=== PATIENT | male | born 1955 | race Caucasian/White ===

== ENCOUNTER 2017-04-15 10:53 | Observation (INO) | payer BC ==
[2017-04-15] VITALS (10 sets, daily range): BP systolic 98–128; BP diastolic 61–79; PULSE 81–98; RESP 16–22; TEMP 97.8–99.3; O2SAT 98–100
[~2017-04-15] VITALS: Ht 182.9 cm; Wt 70.0 kg
[~2017-04-15 10:53] MED LIST: ATEN1TAB73 PO; LEVO.15 PO; LOPI600T PO; PRIN20TA2 PO
[2017-04-15] MEDS ORDERED: LEVO.15 PO (11:15)
[2017-04-15] MEDS ORDERED: DIOV160T3 PO (11:15)
--- NOTE | 2017-04-15 11:26 | PD ---
HPI Chief Complaint: General Weakness Time Seen by Provider: 11:19 Travel History International Travel<30 days: No Contact w/Intl Traveler<30days: No Traveled to known affect area: No History of Present Illness HPI Patient comes in complaining of generalized weakness over the past week. Patient states started after he stood up at work felt lightheaded and fell. Patient denies any loss of consciousness but hit his head on the floor causing a small abrasion to his right temporal lobe. Patient reports since then he's been having a headache primarily in the frontal lobe and behind his eyes. Patient states over the past couple of days he's been feeling more weak and had to be sent home from work. Patient states he was having 3 vodka drinks a day but has been cutting back to one. Patient states he has not had his thyroid checked in over a year. He states he takes his Synthroid and valsartan as prescribed. Patient states approximately a week ago he had 2 episodes of bright red blood per rectum since resolved. Denies any melena or other blood noted in stool. Patient reports he did have diarrhea last night that he believes was from eating peaches as it was orange and he ate a large amount of peaches. Denies any chest pain, shortness of breath, neck pain, numbness or tingling anywhere, abdominal pain, vomiting, nausea, fevers, or change in bladder. Patient is uncertain of his last tetanus shot. Patient states he was taking Aleve for his headache that was helping but he quit taking after having the episode of bright red blood in his stool a week ago. Patient has a history of hypertension, hypothyroidism, and nonfunctioning right kidney. 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 PFSH Past Medical History Cardiovascular Problems: Yes Diminished Hearing: Yes Hypertension: Yes Musculoskeletal: No Neurologic: No Psychiatric: No Thyroid Disease: Yes (HYPOTHYROID) Tetanus Vaccination: < 5 Years Influenza Vaccination: No Past Surgical History Tonsillectomy: Yes Other Surgery: Yes (TONSILLECTOMY) Social History Alcohol Use: Yes (daily) Tobacco Use: No Substance Use: No (pt denies ) Allergies-Medications (Allergen,Severity, Reaction): Coded Allergies: No Known Allergies (Unverified , 04/15/17) Reported Meds & Prescriptions Reported Meds & Active Scripts Active Reported Diovan Hct (Valsartan-Hydrochlorothiazide) 160-12.5 Mg Tab 1 Tab PO DAILY Synthroid (Levothyroxine Sodium) 150 Mcg Tab 150 Mcg PO DAILY Review of Systems Except as stated in HPI: all other systems reviewed are Neg Physical Exam Narrative GENERAL: Well-developed, well nourished, in no acute distress, and non-ill appearing. SKIN: Focused skin assessment warm and dry. Small superficial abrasion noted right temporal lobe. It is nontender, afebrile, and without crepitus. There is no signs of infection. HEAD: Atraumatic. Normocephalic. EYES: Pupils equal and round. EOMI. No scleral icterus. No injection or drainage. ENT: No nasal bleeding or discharge. Mucous membranes pink and moist. NECK: Trachea midline. No JVD. Supple. No nuclear rigidity. CARDIOVASCULAR: Regular rate and rhythm. 2/6 murmur appreciated. RESPIRATORY: No accessory muscle use. No respiratory distress. Clear to auscultation. Breath sounds equal bilaterally. GASTROINTESTINAL: Abdomen soft, non-tender, nondistended, and no guarding. Hepatic and splenic margins not palpable. Normal bowel sounds 4. No pulsatile mass. MUSCULOSKELETAL: No obvious deformities. No clubbing. No cyanosis. No edema. Full range of motion. NEUROLOGICAL: Awake and alert. No obvious cranial nerve deficits. Motor grossly within normal limits. Normal speech. PSYCHIATRIC: Appropriate mood and affect; insight and judgment normal. Data Data Last Documented VS Vital Signs Date Time Temp Pulse Resp B/P Pulse Ox O2 Delivery O2 Flow Rate FiO2 04/15/17 12:28 97.8 81 16 114/73 100 Room Air Orders Electrocardiogram (04/15/17 11:16) Complete Blood Count With Diff (04/15/17 11:16) Comprehensive Metabolic Panel (04/15/17 11:16) Magnesium (Mg) (04/15/17 11:16) Ckmb (Isoenzyme) Profile (04/15/17 11:16) Troponin I (04/15/17 11:16) Act Partial Throm Time (Ptt) (04/15/17 11:16) Prothrombin Time / Inr (Pt) (04/15/17 11:16) Urinalysis - C+S If Indicated (04/15/17 11:16) Chest, Single Ap (04/15/17 11:16) Ct Brain W/O Iv Contrast(Rout) (04/15/17 11:16) Ecg Monitoring (04/15/17 11:16) Iv Access Insert/Monitor (04/15/17 11:16) Oximetry (04/15/17 11:16) Sodium Chloride 0.9% Flush (Ns Flush) (04/15/17 11:30) Orthostatic Vital Signs (04/15/17 11:16) Thyroid Stimulating Hormone (04/15/17 11:16) Tetanus/Diphtheria Tox Adult (Tetanus/Di (04/15/17 11:30) Sodium Chlor 0.9% 1000 Ml Inj (Ns 1000 M (04/15/17 12:15) Westergren Sedimentation Rate (04/15/17 13:17) Vitamin B12 (04/15/17 13:17) Uric Acid (04/15/17 13:17) Thyroid Stimulating Hormone (04/15/17 13:17) Phosphorus (Po4) (04/15/17 13:17) Magnesium (Mg) (04/15/17 13:17) Ammonia (04/15/17 13:17) Free T3 (04/15/17 13:17) Free Thyroxine (T4) (04/15/17 13:17) Free/Total Testosterone Profil (04/15/17 13:17) Psa Free/Total (04/15/17 13:17) Admit Order (Ed Use Only) (04/15/17 13:18) Levothyroxine (Synthroid) (04/16/17 09:00) Labs Laboratory Tests Test 04/15/17 11:30 White Blood Count 3.8 TH/MM3 Red Blood Count 3.28 MIL/MM3 Hemoglobin 10.9 GM/DL Hematocrit 32.8 % Mean Corpuscular Volume 99.9 FL Mean Corpuscular Hemoglobin 33.2 PG Mean Corpuscular Hemoglobin 33.3 % Concent Red Cell Distribution Width 14.4 % Platelet Count 208 TH/MM3 Mean Platelet Volume 7.6 FL Neutrophils (%) (Auto) 67.4 % Lymphocytes (%) (Auto) 21.2 % Monocytes (%) (Auto) 7.5 % Eosinophils (%) (Auto) 2.5 % Basophils (%) (Auto) 1.4 % Neutrophils # (Auto) 2.6 TH/MM3 Lymphocytes # (Auto) 0.8 TH/MM3 Monocytes # (Auto) 0.3 TH/MM3 Eosinophils # (Auto) 0.1 TH/MM3 Basophils # (Auto) 0.1 TH/MM3 CBC Comment DIFF FINAL Differential Comment Prothrombin Time 10.8 SEC Prothromb Time International 1.0 RATIO Ratio Activated Partial 25.4 SEC Thromboplast Time Sodium Level 130 MEQ/L Potassium Level 4.3 MEQ/L Chloride Level 92 MEQ/L Carbon Dioxide Level 23.7 MEQ/L Anion Gap 14 MEQ/L Blood Urea Nitrogen 61 MG/DL Creatinine 2.99 MG/DL Estimat Glomerular Filtration 22 ML/MIN Rate Random Glucose 105 MG/DL Calcium Level 9.3 MG/DL Magnesium Level 1.8 MG/DL Total Bilirubin 0.8 MG/DL Aspartate Amino Transf 283 U/L (AST/SGOT) Alanine Aminotransferase 141 U/L (ALT/SGPT) Alkaline Phosphatase 142 U/L Total Creatine Kinase 59 U/L Troponin I LESS THAN 0.02 NG/ML Total Protein 7.9 GM/DL Albumin 4.0 GM/DL Thyroid Stimulating Hormone 26.900 uIU/ML [address] [place] [address] Medical Decision Making Medical Screen Exam Complete: Yes Emergency Medical Condition: Yes Interpretation(s) EKG reviewed by Dr. Gonzalez shows sinus rhythm with a ventricular rate of 79. No STEMI. Chest x-ray read by the radiologist shows: No acute disease. CT head read by the radiologist shows: No acute intracranial injury. Differential Diagnosis Anemia, orthostatic hypotension, dehydration, acute coronary syndrome, renal insufficiency, pneumonia, postconcussive headache, closed head injury, intracranial hemorrhage, uncontrolled thyroid, other Narrative Course Patient was seen and examined. IV was established. Patient was placed on a monitor technician. Initial laboratory and radiological studies were ordered. Orthostatics were ordered. Patient was hydrated with IV fluid. Labs and radiological studies were reviewed. Discussed patient with Dr. Gonzalez, who is in agreement with plan of care and disposition. Discussed all findings and plan care was patient, who was agreeable for admission. All questions were answered. Discussed patient with hospitalist, who is agreeable to admit the patient. Patient remained stable throughout ED course. Physician Communication Physician Communication [id number] Camilo, who is agreeable to the patient. Diagnosis Primary Impression: Generalized weakness Additional Impressions: Acute on chronic renal insufficiency Hypothyroidism Qualified Code: E03.9 - Hypothyroidism, unspecified type Admitting Information Admitting Physician Requests: Observation Condition: Stable Peter Rendon Apr 15, 2017 11:26
[2017-04-15] MEDS ORDERED: SODIUM CHLORIDE 0.9% FLUSH 10 ML FLUSH IVF PRN (11:30)
[2017-04-15] MEDS ORDERED: TETANUS/DIPHTHERIA TOXOID ADULT 0.5 ML VIAL IM ONE (11:30)
[2017-04-15 11:44] LABS: AUTOMATED NEUTROPHIL # 2.6 TH/MM3 (1.8-7.7); BASOPHIL # 0.1 TH/MM3 (0-0.2); BASOPHIL % 1.4 % (0.0-2.0); EOSINOPHIL # 0.1 TH/MM3 (0-0.4); EOSINOPHIL % 2.5 % (0.0-4.0); HEMATOCRIT 32.8 % (39.0-51.0); HEMO FLAGS DIFF FINAL; LYMPH % 21.2 % (9.0-44.0); LYMPHOCYTE # 0.8 TH/MM3 (1.0-4.8); MEAN CELL VOLUME 99.9 FL (80.0-100.0); MEAN CORPUSCULAR HEMOGLOBIN 33.2 PG (27.0-34.0); MEAN CORPUSCULAR HGB CONC 33.3 % (32.0-36.0); MONO % 7.5 % (0.0-8.0); NEUT % 67.4 % (16.0-70.0); PLATELET COUNT 208 TH/MM3 (150-450); RED BLOOD COUNT 3.28 MIL/MM3 (4.50-5.90); RED CELL DISTRIBUTION WIDTH 14.4 % (11.6-17.2); WHITE BLOOD COUNT 3.8 TH/MM3 (4.0-11.0)
[2017-04-15 11:49] LABS: APTT (PATIENT) 25.4 SEC (24.3-30.1); PROTHROMBIN TIME - PATIENT 10.8 SEC (9.8-11.6)
[2017-04-15 11:58] LABS: ALT (GPT) 141 U/L (12-78); ANION GAP 14 MEQ/L (5-15); AST (GOT) 283 U/L (15-37); BICARBONATE 23.7 MEQ/L (21.0-32.0); BLOOD UREA NITROGEN 61 MG/DL (7-18); CHLORIDE 92 MEQ/L (98-107); GLOMERULAR FILTRATION RATE 22 ML/MIN (>89); MAGNESIUM 1.8 MG/DL (1.5-2.5); POTASSIUM 4.3 MEQ/L (3.5-5.1); SODIUM (NA) 130 MEQ/L (136-145)
[2017-04-15 12:07] LABS: ALKALINE PHOSPHATASE 142 U/L (45-117); TOTAL BILIRUBIN ADULT 0.8 MG/DL (0.2-1.0)
[2017-04-15] MEDS ORDERED: SODIUM CHLOR 0.9% 1000 ML INJ 1,000 ML IV ONE (12:15)
[2017-04-15 12:17] LABS: CREATINE KINASE 59 U/L (39-308)
--- NOTE | 2017-04-15 12:30 | RADRPT ---
EXAM DATE/TIME: 04/15/2017 11:28 [facility] COMPARISON: No previous studies available for comparison. INDICATIONS : Patient fell and hit his head last Thursday. States he's been dizzy since. He fell on Thursday also. MEDICAL HISTORY : None. SURGICAL HISTORY : None. ENCOUNTER: Initial ACUITY: 1 day PAIN SCORE: 0/10 LOCATION: Bilateral chest FINDINGS: A single view of the chest demonstrates the lungs to be symmetrically aerated without evidence of mas s, infiltrate or effusion. The cardiomediastinal contours are unremarkable. Osseous structures are intact. CONCLUSION: No acute disease. Hayes Gross MD on April 15, 2017 at 12:28 Board Certified Radiologist. This report was verified electronically.
--- NOTE | 2017-04-15 12:46 | RADRPT ---
EXAM DATE/TIME: 04/15/2017 12:19 [facility] COMPARISON: No previous studies available for comparison. INDICATIONS : Fell hit head one week ago abrasion right frontal area,dizzy. RADIATION DOSE: 35.13 CTDIvol (mGy) MEDICAL HISTORY : Hypothyroidism. SURGICAL HISTORY : None. ENCOUNTER: Initial ACUITY: 1 day PAIN SCALE: 5/10 LOCATION: cranial TECHNIQUE: Multiple contiguous axial images were obtained of the head. Using automated exposure control and adj ustment of the mA and/or kV according to patient size, radiation dose was kept as low as reasonably a chievable to obtain optimal diagnostic quality images. DICOM format image data is available electro nically for review and comparison. FINDINGS: There is mild symmetric cortical atrophy. No evidence of intracranial mass or hemorrhage. The leg to suggest acute infarction. The ventricles are symmetric and normal. The extracranial structures are be nign and intact. CONCLUSION: No acute intracranial injury Lucas Cantrell MD on April 15, 2017 at 12:42 Board Certified Radiologist. This report was verified electronically.
[2017-04-15] MEDS ORDERED: SODIUM CHLORIDE 0.9% FLUSH 10 ML FLUSH IV FLUSH PRN (13:30)
[2017-04-15] MEDS ORDERED: MAGNESIUM HYDROXIDE SUSP 30 ML CUP PO PRN (13:30)
[2017-04-15] MEDS ORDERED: ONDANSETRON HCL 4 MG/2 ML VIAL IVP PRN (13:30)
[2017-04-15] MEDS ORDERED: BISACODYL 10 MG SUPP RECTAL PRN (13:30)
[2017-04-15] MEDS ORDERED: NALOXONE HCL 0.4 MG/ML AMP IV PRN (13:30)
[2017-04-15] MEDS ORDERED: LACTULOSE SYRUP 20 GM/30 ML CUP PO PRN (13:30)
[2017-04-15] MEDS ORDERED: SENNOSIDES 8.6 MG TAB PO PRN (13:30)
[2017-04-15] MEDS: HEPARIN SODIUM - SQ 10,000 UNITS/ML VIAL SQ SCH (14:01)
[2017-04-15] MEDS: SODIUM CHLOR 0.9% 1000 ML INJ 1,000 ML IV SCH (14:01)
[2017-04-15 14:02] LABS: BLOOD, URINE TRACE (NEG); COMMENT (UR) CULT NOT INDICATED; CULTURE IF INDICATED CULT NOT INDICATED; GLUCOSE,URINE NEG (NEG); HYALINE CAST, URINE 5 /lpf (RARE); KETONE, URINE NEG (NEG); NITRITE,URINE NEG (NEG); SQUAMOUS EPITHELIAL CELL URINE <1 /hpf (0-5); URINE COLOR YELLOW (YELLW/STRAW)
[2017-04-15 14:15] LABS: MAGNESIUM 1.8 MG/DL (1.5-2.5); URIC ACID 12.4 MG/DL (2.6-7.2)
[2017-04-15 14:21] LABS: CREATINE KINASE 54 U/L (39-308)
[2017-04-15 14:41] LABS: FREE T3 1.99 PG/ML (2.18-3.98); FREE T4 1.24 NG/DL (0.76-1.46)
--- NOTE | 2017-04-15 18:35 | HHI.HP ---
HPI Service [facility] Primary Care Physician Wilfrido Perez MD Admission Diagnosis acute on chronic renal failure, uncontrolled hypothyroid, weakness Diagnoses: Chief Complaint: Dizziness Travel History International Travel<30 Days: No Contact w/Intl Traveler <30 Da: No Traveled to Known Affected Are: No History of Present Illness This a 62-year-old white male with significant past medical history of hypertension, hypothyroid, hyperlipidemia, chronic kidney disease. Patient presented to the emergency room with complaint of dizziness that has been ongoing for the last month. States that approximately 4 days ago he got up very fast felt lightheaded and fell. He hit his head, he did not lose consciousness. He was able to get up and walk around without any problem. He sustained a small abrasion to the right temporal lobe. At that time he did not seek any medical assistance. Patient indicates that he has continued to feel more dizzy, he is complaining of a headache. He's also felt more weak and very fatigued. Patient states that 3 days ago he was drinking more heavily, approximately 3 Vodkas a day but has been cutting back down to 1. His last drink was 2 days ago when he had a shot of liquor. Patient states he has not seen his primary care physician in almost a year and has not had his TSH done. Patient denies any fever, no chills, no chest pain, no shortness of breath, no diarrhea. Indicates that a few days ago he did notice some blood on the stool but this stopped, he attributed to taking Aleve which he takes maybe twice a week for headache. He does have a known history of chronic kidney disease, does not follow-up regularly with rn allergy and is managed by his primary care physician. Indicates he had forgotten that he is not supposed to be taking Aleve because of his kidney function. States that he was told his right kidney is not functioning well. Patient was evaluated in emergency room, laboratory workup was completed. Vital signs significant for mild tachycardia, blood pressure was 102/65, heart rate 97. CBC remarkable for leukopenia, WBC 3.8, hemoglobin 10.9, hematocrit 32.8. Sedimentation rate 47. BMP remarkable for hyponatremia, sodium 1:30. BUN 2061, creatinine 2.99. Uric acid 2.4. Phosphorus 1.8. AST 283, ALT 12/06/40, alkaline phosphatase 142. Ammonia negative. TSH was 26.9. Free T3 1 0.99. Troponin was negative. urinalysis was negative. Chest x-ray was negative. CT of the head did not reveal any acute findings. EKG was normal. Patient was given 1 L of IV fluids. Patient endorses that he is compliant with his Synthroid, he was last admitted here in 2011 and at that time he wasn't taking it regularly. Patient is admitted for further evaluation and treatment. Review of Systems Constitutional: COMPLAINS OF: Dizziness, DENIES: Diaphoretic episodes, Fatigue , Fever, Weight gain, Weight loss, Chills, Change in appetite, Night Sweats Endocrine: DENIES: Heat/cold intolerance, Polydipsia, Polyuria, Polyphagia Eyes: DENIES: Blurred vision, Diplopia, Eye inflammation, Eye pain, Vision loss , Photosensitivity, Double Vision Ears, nose, mouth, throat: DENIES: Tinnitus, Hearing loss, Vertigo, Nasal discharge, Oral lesions, Throat pain, Hoarseness, Ear Pain, Running Nose, Epistaxis, Sinus Pain, Toothache, Odynophagia Respiratory: DENIES: Apneas, Cough, Snoring, Wheezing, Hemoptysis, Sputum production, Shortness of breath Cardiovascular: DENIES: Chest pain, Palpitations, Syncope, Dyspnea on Exertion , PND, Lower Extremity Edema, Orthopnea, Claudication Gastrointestinal: COMPLAINS OF: Bloody stools (noticed one time, stopped taking Aleve and has not seen anymore.), DENIES: Abdominal pain, Black stools, Constipation, Diarrhea, Nausea, Vomiting, Difficulty Swallowing, Anorexia Genitourinary: DENIES: Sexual dysfunction, Urinary frequency, Urinary incontinence, Urgency, Hematuria, Dysuria, Nocturia, Penile Discharge, Testicular Pain, Testicular Swelling Musculoskeletal: DENIES: Joint pain, Muscle aches, Stiffness, Joint Swelling, Back pain, Neck pain Integumentary: DENIES: Abnormal pigmentation, Nail changes, Pruritus, Rash Hematologic/lymphatic: DENIES: Bruising, Lymphadenopathy Immunologic/allergic: DENIES: Eczema, Urticaria Neurologic: DENIES: Abnormal gait, Headache, Localized weakness, Paresthesias, Seizures, Speech Problems, Tremor, Poor Balance Psychiatric: DENIES: Anxiety, Confusion, Mood changes, Depression, Hallucinations, Agitation, Suicidal Ideation, Homicidal Ideation, Delusions Other Weak, dehydrated Past Family Social History Past Medical History Hypertension hypothyroidism Hyperlipidemia CKD Hyperkalemia Knee pain Pulmonary nodule Past Surgical History Tonsillectomy Reported Medications Reported Meds & Active Scripts Active Reported Diovan Hct (Valsartan-Hydrochlorothiazide) 160-12.5 Mg Tab 1 Tab PO DAILY Synthroid (Levothyroxine Sodium) 150 Mcg Tab 150 Mcg PO DAILY Allergies: Coded Allergies: No Known Allergies (Unverified , 04/15/17) Active Ordered Medications Inpatient Medications Bisacodyl (Dulcolax Supp) 10 mg DAILY PRN RECTAL SEVERE CONSITIPATION; Start at 13:30 Heparin Sodium (Porcine) (Heparin Inj) 5,000 units Q12H SQ Last administered on 04/15/17 14:01; Start 04/15/17 at 15:00 Lactulose (Lactulose Liq) 30 ml DAILY PRN PO SEVERE CONSITIPATION; Start at 13:30 Levothyroxine Sodium 150 mcg 150 mcg DAILY PO ; Start 04/16/17 at 09:00 Magnesium Hydroxide (Milk Of Magnesia Liq) 30 ml Q12H PRN PO MILD - MODERATE CONSTIPATION; Start 04/15/17 at 13:30 Naloxone HCl (Narcan Inj) 0.4 mg UNSCH PRN IV SEE LABEL COMMENTS; Start at 13:30 Ondansetron HCl (Zofran Inj) 4 mg Q6H PRN IVP NAUSEA OR VOMITING; Start at 13:30 Senna/Docusate Sodium (Desi-Colace) 1 tab BID PO ; Start 04/15/17 at 21:00 Sennosides (Senokot) 17.2 mg Q12H PRN PO MODERATE - SEVERE CONSTIPATION; Start 04/15/17 at 13:30 Sodium Chloride (NS 1000 ml Inj) 1,000 ml @ 100 mls/hr Q10H IV Last administered on 04/15/17 14:01; Start 04/15/17 at 14:00 Sodium Chloride (NS Flush) 2 ml BID IV FLUSH ; Start 04/15/17 at 21:00 Tetanus/ Diphtheria Toxoids (Tetanus/ Diphtheria Tox Adult) 0.5 ml ONCE ONCE IM Last administered on 04/15/17 11:29; Start 04/15/17 at 11:30; Stop 04/15/17 at 11:31; Status DC Family History Mother is , history of stroke Father is alive and well Social History Patient works as a bakery chef, lives alone. Has grown children. No smoking, no substance abuse. Indicates that he was drinking 3 vodkas a day, he has been cutting down for the last 2 weeks. His last drink was 2 days ago, he had a shot of liquor Physical Exam Vital Signs Vital Signs Date Time Temp Pulse Resp B/P Pulse Ox O2 Delivery O2 Flow Rate FiO2 04/15/17 17:06 99.0 90 18 110/68 99 04/15/17 16:18 97.9 93 17 118/69 100 04/15/17 13:42 97.9 82 17 122/79 100 Room Air 04/15/17 12:28 97.8 81 16 114/73 100 Room Air 04/15/17 11:24 89 17 103/70 89 17 113/71 96 17 110/63 04/15/17 11:21 17 100 Room Air 04/15/17 11:10 89 17 Room Air 04/15/17 10:55 98.6 97 20 102/65 100 Room Air Physical Exam GENERAL: This is a well-nourished, well-developed patient, in no apparent distress. SKIN: No rashes, ecchymoses or lesions. Cool and dry. HEAD: Atraumatic. Normocephalic. No temporal or scalp tenderness. Right forehead with abrasion that appears old, it is healing well. Scabbing EYES: Pupils equal round and reactive. Extraocular motions intact. No scleral icterus. No injection or drainage. ENT: Nose without bleeding, purulent drainage or septal hematoma. Throat without erythema, tonsillar hypertrophy or exudate. Uvula midline. Airway patent. NECK: Trachea midline. No JVD or lymphadenopathy. Supple, nontender, no meningeal signs. CARDIOVASCULAR: Regular rate and rhythm without murmurs, gallops, or rubs. RESPIRATORY: Clear to auscultation. Breath sounds equal bilaterally. No wheezes , rales, or rhonchi. GASTROINTESTINAL: Abdomen soft, non-tender, nondistended. No hepato-splenomegaly , or palpable masses. No guarding. MUSCULOSKELETAL: Extremities without clubbing, cyanosis, or edema. No joint tenderness, effusion, or edema noted. No calf tenderness. Negative Homans sign bilaterally. NEUROLOGICAL: Awake, alert oriented 3. No focal deficits. Laboratory Laboratory Tests Test 04/15/17 04/15/17 04/15/17 11:30 13:30 13:40 White Blood Count 3.8 Red Blood Count 3.28 Hemoglobin 10.9 Hematocrit 32.8 Mean Corpuscular Volume 99.9 Mean Corpuscular Hemoglobin 33.2 Mean Corpuscular Hemoglobin 33.3 Concent Red Cell Distribution Width 14.4 Platelet Count 208 Mean Platelet Volume 7.6 Neutrophils (%) (Auto) 67.4 Lymphocytes (%) (Auto) 21.2 Monocytes (%) (Auto) 7.5 Eosinophils (%) (Auto) 2.5 Basophils (%) (Auto) 1.4 Neutrophils # (Auto) 2.6 Lymphocytes # (Auto) 0.8 Monocytes # (Auto) 0.3 Eosinophils # (Auto) 0.1 Basophils # (Auto) 0.1 CBC Comment DIFF FINAL Differential Comment Erythrocyte Sedimentation Rate 47 Prothrombin Time 10.8 Prothromb Time International 1.0 Ratio Activated Partial 25.4 Thromboplast Time Sodium Level 130 Potassium Level 4.3 Chloride Level 92 Carbon Dioxide Level 23.7 Anion Gap 14 Blood Urea Nitrogen 61 Creatinine 2.99 Estimat Glomerular Filtration 22 Rate Random Glucose 105 Calcium Level 9.3 Magnesium Level 1.8 1.8 Total Bilirubin 0.8 Aspartate Amino Transf 283 (AST/SGOT) Alanine Aminotransferase 141 (ALT/SGPT) Alkaline Phosphatase 142 Total Creatine Kinase 59 54 Troponin I LESS THAN 0.02 LESS THAN 0.02 Total Protein 7.9 Albumin 4.0 Thyroid Stimulating Hormone 26.900 19.400 3rd Gen Uric Acid 12.4 Phosphorus Level 1.8 Ammonia LESS THAN 10 Vitamin B12 Level 1061 Free Thyroxine 1.24 Free Triiodothyronine (T3) 1.99 pg/dL Urine Color YELLOW Urine Turbidity CLEAR Urine pH 5.0 Urine Specific [place] 1.014 Urine Protein 30 Urine Glucose (UA) NEG Urine Ketones NEG Urine Occult Blood TRACE Urine Nitrite NEG Urine Bilirubin NEG Urine Urobilinogen LESS THAN 2.0 Urine Leukocyte Esterase NEG Urine RBC 1 Urine WBC 1 Urine Squamous Epithelial <1 Cells Urine Hyaline Casts 5 Microscopic Urinalysis Comment CULT NOT INDICATED Result Diagram: 04/15/17 1130 04/15/17 1130 Imaging Last Impressions Head CT 04/15/17 1116 Signed Impressions: Service Date/Time: Saturday, April 15, 2017 12:19 - CONCLUSION: No acute intracranial injury Lucas Cantrell MD Chest X-Ray 04/15/17 1116 Signed Impressions: Service Date/Time: Saturday, April 15, 2017 11:28 - CONCLUSION: No acute disease. Hayes Gross MD Assessment and Plan Problem List: (1) Dizziness (2) Hypertension (3) Hyperlipidemia (4) Hypothyroidism (5) Generalized weakness (6) History of recent fall (7) Acute on chronic renal insufficiency (8) ETOH abuse (9) Elevated uric acid in blood (10) Elevated liver enzymes (11) Hyponatremia Assessment and Plan Admitted to Dr. Camilo 62-year-old white male presented to emergency room with complaint of dizziness, recent fall with right frontotemporal operation. CT of the head negative. Found with acute on chronic kidney injury and elevated TSH 26.9. Dizziness, possibly multifactorial, with acute on chronic renal injury, possibly dehydrated, TSH 26.9 -Continuous cardiac telemetry Continue with IV fluids Continue with Synthroid, will need follow-up thyroid function in 4-6 weeks We will check orthostatics every shift -Hold blood pressure medication Severe hypothyroid, questionable compliance Resume Synthroid Acute on chronic kidney injury Hypophosphatemia Hyponatremia Elevated uric acid Continue with IV fluids -Replace phosphorus We will check renal ultrasound We will hold Diovan at this time -Patient is educated to avoid NSAIDs -Follow BMP Alcohol abuse, indicates he has been cutting down Monitor for withdrawal Ethanol abuse counseling done We will start folic acid and thiamine Elevated liver enzymes Repeat LFTs in the morning Heparin for DVT prophylaxis Plan of care has been discussed with the patient, attending and registered nurse. Further management of the patient will be dependent on the hospital course This patient was seen by myself and Dr. Camilo, this H&P is written on his behalf Problem Qualifiers (1) Hypertension: Qualified Code: I10 - Hypertension, unspecified type (2) Hyperlipidemia: Qualified Code: E78.5 - Hyperlipidemia, unspecified hyperlipidemia type (3) Hypothyroidism: Qualified Code: E03.9 - Hypothyroidism, unspecified type Erin Hawley Apr 15, 2017 18:35
[2017-04-15] MEDS ORDERED: POTASSIUM PHOSPHATE INJ 15 MMOL in SODIUM CHLORIDE 0.9% INJ 150 ML IV ONE (20:00)
[2017-04-15 20:25] LABS: CREATINE KINASE 51 U/L (39-308)
[2017-04-15] MEDS: DOCUSATE SODIUM 50 MG/SENNA 8.6 MG TAB PO SCH (20:58)
[2017-04-15] MEDS: SODIUM CHLORIDE 0.9% FLUSH 10 ML FLUSH IV FLUSH SCH (20:58)
--- NOTE | 2017-04-15 21:07 | RADRPT ---
EXAM DATE/TIME: 04/15/2017 20:25 [facility] COMPARISON: No previous studies available for comparison. INDICATIONS : Abnormal labs. MEDICAL HISTORY : Hypertension. Hypothyroidism. Cardiac disorders. Melena. Left sided kidney failure. Endocrine disor ders. SURGICAL HISTORY : Tonsillectomy. ENCOUNTER: Initial ACUITY: 1 day PAIN SCORE: 0/10 LOCATION: Bilateral neck MEASUREMENTS: RIGHT LOBE: 3.6 x 1.6 x 1.1 cm LEFT LOBE: 2.6 x 1.2 x 1.1 cm FINDINGS: The thyroid gland is heterogeneous and relatively small in size. No discrete or dominant nodule ident ified. CONCLUSION: 1. Small, heterogeneous thyroid gland. Skip Barlow MD on April 15, 2017 at 21:03 Board Certified Radiologist. This report was verified electronically.
--- NOTE | 2017-04-15 21:16 | RADRPT ---
EXAM DATE/TIME: 04/15/2017 20:01 [place] COMPARISON: No previous studies available for comparison. INDICATIONS : Increased BUN/creatinine. MEDICAL HISTORY : Hypertension. Hypothyroidism. Cardiac disorders. Melena. Left sided kidney failure. Endocrine dis orders. SURGICAL HISTORY : Tonsillectomy. ENCOUNTER: Subsequent ACUITY: > 1 year PAIN SCORE: 0/10 LOCATION: Bilateral flank MEASUREMENTS: RIGHT KIDNEY: 8.1 x 3.8 x 4.0 cm LEFT KIDNEY: 9.7 x 4.4 x 5.2 cm FINDINGS: The right kidney is atrophic measuring about 8 x 4 x 3.8 cm not significantly changed since . Left kidney measures 9.7 cm in length with a approximately 1 cm calcification upper pole and midpole nonobstructing and hydronephrosis. Bladder is empty. CONCLUSION: 1. Echogenic kidneys characteristic of medical renal disease. Atrophic right kidney similar to prior study in 2012. Nonobstructing calcifications in the upper and midpole left kidney. Skip Barlow MD on April 15, 2017 at 21:12 Board Certified Radiologist. This report was verified electronically.
[2017-04-16] VITALS (12 sets, daily range): BP systolic 114–144; BP diastolic 70–84; PULSE 69–104; RESP 14–20; TEMP 98.4–99.1; O2SAT 98–100
[2017-04-16] MEDS: SODIUM CHLOR 0.9% 1000 ML INJ 1,000 ML IV SCH ×3 (01:36→20:38)
[2017-04-16] MEDS: HEPARIN SODIUM - SQ 10,000 UNITS/ML VIAL SQ SCH ×2 (03:46→16:15)
[2017-04-16 05:35] LABS: PROTHROMBIN TIME - PATIENT 11.5 SEC (9.8-11.6)
[2017-04-16 05:53] LABS: ALKALINE PHOSPHATASE 101 U/L (45-117); ALT (GPT) 94 U/L (12-78); ANION GAP 11 MEQ/L (5-15); AST (GOT) 143 U/L (15-37); BICARBONATE 21.9 MEQ/L (21.0-32.0); BLOOD UREA NITROGEN 57 MG/DL (7-18); CHLORIDE 103 MEQ/L (98-107); GLOMERULAR FILTRATION RATE 29 ML/MIN (>89); SODIUM (NA) 136 MEQ/L (136-145); TOTAL BILIRUBIN ADULT 0.3 MG/DL (0.2-1.0)
[2017-04-16] MEDS ORDERED: LEVOTHYROXINE SODIUM 150 MCG TAB PO SCH (06:00)
[2017-04-16] MEDS: SODIUM CHLORIDE 0.9% FLUSH 10 ML FLUSH IV FLUSH SCH ×2 (09:30→20:37)
[2017-04-16] MEDS: THIAMINE HCL 100 MG TAB PO SCH (09:30)
[2017-04-16] MEDS: FOLIC ACID 1 MG TAB PO SCH (09:30)
[2017-04-16] MEDS: DOCUSATE SODIUM 50 MG/SENNA 8.6 MG TAB PO SCH ×2 (09:31→20:37)
--- NOTE | 2017-04-16 10:08 | HHI.PR ---
Subjective Remarks Resting in the bed Awake appears fairly calm Denies any further syncope IV hydration continues (Shannon Wyman) Objective Objective Results - Vital Signs Date Time Temp Pulse Resp B/P Pulse Ox O2 Delivery O2 Flow Rate FiO2 04/16/17 07:54 98.8 90 14 133/82 98 04/16/17 04:05 69 04/16/17 03:55 98.8 82 16 114/73 99 04/16/17 00:08 75 04/15/17 23:40 99.1 89 18 114/76 98 04/15/17 20:11 98 04/15/17 19:51 99.3 88 22 128/78 99 115/69 98/61 04/15/17 17:06 99.0 90 18 110/68 99 04/15/17 16:18 97.9 93 17 118/69 100 04/15/17 13:42 97.9 82 17 122/79 100 Room Air 04/15/17 12:28 97.8 81 16 114/73 100 Room Air 04/15/17 11:24 89 17 103/70 89 17 113/71 96 17 110/63 04/15/17 11:21 17 100 Room Air 04/15/17 11:10 89 17 Room Air 04/15/17 10:55 98.6 97 20 102/65 100 Room Air I/O 04/15/17 04/15/17 04/15/17 04/16/17 04/16/17 04/16/17 07:00 15:00 23:00 07:00 15:00 23:00 Intake Total 300 ml Output Total 400 ml 200 ml 225 ml Balance -100 ml -200 ml -225 ml Intake Oral 300 ml Output Urine Total 400 ml 200 ml 225 ml # Voids 1 3 1 # Bowel Movements 0 (Shannon Wyman) Result Diagram: 04/15/17 1130 04/16/17 0446 ROS General: Fatigue, Weakness, Other (10 point ROS done positives noted) Pulmonary: Cough (mild nonproductive versus thing in the morning) GI: BM (bowel regimen) (Shannon Wyman) Physical Exam Physical Exam PHYSICAL EXAMINATION GENERAL: This is a male who appears to be in no acute distress. He is alert and awake, not anxious HEAD: Normocephalic OROPHARYNGEAL: Oropharynx slightly dry NECK: Supple. Trachea midline without deviation. CARDIAC: Regular rhythm, regular rate, S1 and S2 are heard. LUNGS: Clear to auscultation bilaterally. Occasional nonproductive cough ABDOMEN: Soft, nontender, nondistended EXTREMITIES: no edema. Strength in these warm to touch NEUROLOGICAL: Patient mood and affect appropriate. SKIN:Warm and moist (Shannon Wyman) A/P Assessment and Plan (1) Dizziness (2) Hypertension (3) Hyperlipidemia (4) Hypothyroidism (5) Generalized weakness (6) History of recent fall (7) Acute on chronic renal insufficiency (8) ETOH abuse (9) Elevated uric acid in blood (10) Elevated liver enzymes (11) Hyponatremia Vital signs reviewed, temperature 99.1 low-grade within the last 24 hours but normal this morning, other trends normal, prostatic's monitored Labs reviewed anemia noted 10.9 probable secondary to chronic disease Mild cough noted Dizziness on admission, states no further dizziness noted has been up ambulatory short distances only telemetry shows sinus rhythm Continue IV fluids for hydration Encourage patient to ambulate and be up today and evaluate any further dizziness Monitor bowel regimen Severe hypothyroid, medical management for now with Synthroid Scan shows small thyroid which could possibly contribute to function kidney injury Noted atrophic right kidney, with renal disease, probable acute on chronic Encouraged by mouth intake, decreased alcohol intake, good nutrition, patient states voided multiple times during the night Continue IV hydration for now Alcohol abuse, CIWA No acute withdrawal noted, counseling done on admission Medical management with meds Heparin for DVT prophylaxis Discussed with patient Discussed with nurse Discussed with Dr. Camilo, seen on his behalf Discharge planning dependent on any further testing needed, will need to follow up with nephrology either this admission or the near future (Shannon Wyman) Assessment and Plan seen, examined by myself, Dr Camilo, today Discussed with patient Synthroid increased to 200 g He is not orthostatic Needs to be well hydrated Follow-up with nephrology as outpatient Discharge home Discussed with mid level provider The exam, history, and the medical decision-making described in the above note were completed with the assistance of the mid-level provider. I reviewed the findings presented. I attest that I had a [id number] encounter with the patient on the same day, and personally performed and documented my assessment and findings in the medical record. Discussed With: Nurse (Pina Camilo MD) Shannon Wyman Apr 16, 2017 10:08 Pina Camilo MD Apr 16, 2017 20:10
--- NOTE | 2017-04-16 11:31 | EKG ---
Date Performed: 04/15/2017 Time Performed: 11:44:29 PTAGE: 62 years EKG: Sinus rhythm NORMAL ECG Compared to prior tracing no significant change PREVIOUS TRACING : 06/22/2012 11.59 DOCTOR: Onur Hernández Interpretating Date/Time 04/16/2017 11:29:16
[2017-04-17] VITALS: PULSE 80
[2017-04-17] MEDS: HEPARIN SODIUM - SQ 10,000 UNITS/ML VIAL SQ SCH (03:36)
[2017-04-17] MEDS: SODIUM CHLOR 0.9% 1000 ML INJ 1,000 ML IV SCH (03:36)
[2017-04-17 04:00] VITALS: PULSE 77
[2017-04-17 04:45] VITALS: BP 144/87; PULSE 81; RESP 18; O2SAT 99
[2017-04-17] MEDS ORDERED: LEVOTHYROXINE SODIUM 200 MCG TAB PO SCH (06:00)
[2017-04-17 08:00] VITALS: PULSE 105
[2017-04-17] MEDS: THIAMINE HCL 100 MG TAB PO SCH (09:12)
[2017-04-17] MEDS: FOLIC ACID 1 MG TAB PO SCH (09:12)
[2017-04-17] MEDS: DOCUSATE SODIUM 50 MG/SENNA 8.6 MG TAB PO SCH (09:12)
[2017-04-17] MEDS: SODIUM CHLORIDE 0.9% FLUSH 10 ML FLUSH IV FLUSH SCH (09:12)
--- NOTE | 2017-04-17 09:26 | HHI.PR ---
Subjective Remarks Resting in the bed Denies any further syncope Physical therapy in this morning and states patient is ambulating safely no further syncopal episodes Patient is now hydrated (Shannon Wyman) Objective Objective Results - Vital Signs Date Time Temp Pulse Resp B/P Pulse Ox O2 Delivery O2 Flow Rate FiO2 04/17/17 04:45 81 18 144/87 99 04/17/17 04:00 77 04/17/17 00:00 80 04/16/17 23:49 98.7 79 18 130/80 100 04/16/17 20:00 98 04/16/17 19:49 98.4 104 20 140/82 99 04/16/17 16:18 144/84 132/77 125/74 04/16/17 15:45 99.1 90 18 129/80 98 04/16/17 15:11 85 04/16/17 12:02 98.9 86 18 117/70 100 I/O 04/16/17 04/16/17 04/16/17 04/17/17 04/17/17 04/17/17 07:00 15:00 23:00 07:00 15:00 23:00 Output Total 225 ml 600 ml Balance -225 ml -600 ml Output Urine Total 225 ml 600 ml # Voids 1 (Shannon Wyman) Result Diagram: 04/15/17 1130 04/16/17 0446 ROS General: Weakness (improved), Other (10 point ROS done positives noted) GI: BM (I will regimen) /INTERNATIONAL MARKETING INTERN: Other (well hydrated) (Shannon Wyman) Physical Exam Physical Exam PHYSICAL EXAMINATION GENERAL: This is male who appears to be in no acute distress. He is alert and awake, no dizziness noted HEAD: Normocephalic Facial features appear symmetric. OROPHARYNGEAL: Oropharynx without erythema or edema. NECK: Supple. No nuchal rigidity or lymphadenopathy. Trachea midline without deviation. CARDIAC: Regular rhythm, regular rate, S1 and S2 are heard LUNGS: Clear to auscultation bilaterally. ABDOMEN: Soft, nontender, no organomegaly or masses. Bowel sounds are heard in all four quadrants. EXTREMITIES: No edema. Extremities warm NEUROLOGICAL: Patient mood and affect appropriate. No focal deficit SKIN:Warm and moist (Shannon Wyman) A/P Assessment and Plan (1) Dizziness (2) Hypertension (3) Hyperlipidemia (4) Hypothyroidism (5) Generalized weakness (6) History of recent fall (7) Acute on chronic renal insufficiency (8) ETOH abuse (9) Elevated uric acid in blood (10) Elevated liver enzymes (11) Hyponatremia Vital signs reviewed, trends are normal Labs reviewed anemia stable Dizziness on admission, states no further dizziness noted, up with physical therapy states he is safe for ambulation telemetry shows sinus rhythm IV hydration successful patient is asymptomatic of any dizziness Monitor bowel regimen Voiding without difficulty Severe hypothyroid, medical management for now with Synthroid, dose adjusted Scan shows small thyroid which could possibly contribute to function kidney injury Noted atrophic right kidney, with renal disease, probable acute on chronic Encouraged by mouth intake, decreased alcohol intake, good nutrition, patient states voided multiple times during the night Alcohol abuse, CIWA No acute withdrawal noted, counseling done on admission Medical management with meds Heparin for DVT prophylaxis Discussed with patient Discussed with nurse Discussed with Dr. Camilo, seen on his behalf DC planning today, to follow up with nephrology on an outpatient basis Discussed With: Nurse (Shannon Wyman) Assessment and Plan seen, examined by myself, Dr Camilo, today Discussed with patient Discharge home today on 200 g of levothyroxine daily He was informed that he needs to have his primary physician check his TSH in one month Also he needs to stop alcohol completely Avoid any nephrotoxins He was informed that he needs to get his primary care physician to refer him to a money counter regarding his chronic kidney disease Discussed with mid level provider The exam, history, and the medical decision-making described in the above note were completed with the assistance of the mid-level provider. I reviewed the findings presented. I attest that I had a [id number] encounter with the patient on the same day, and personally performed and documented my assessment and findings in the medical record. (Pina Camilo MD) Shannon Wyman Apr 17, 2017 09:26 Pina Camilo MD Apr 17, 2017 19:17
[2017-04-17] MEDS ORDERED: LEVO.2 PO (09:41)
[2017-04-21 14:08] LABS: FREE PSA/PSA RATIO 0.29 ratio (())
--- NOTE | 2017-05-10 18:43 | HHI.DS ---
Discharge Summary Admission Date Apr 15, 2017 at 13:21 Discharge Date: Apr 17, 2017 Admitting Diagnosis acute on chronic renal failure, uncontrolled hypothyroid, weakness (1) Dizziness ICD Codes: R42 - Dizziness and giddiness Status: Acute (2) Hypertension ICD Codes: I10 - Hypertension Status: Acute (3) Hyperlipidemia ICD Codes: E78.5 - Hyperlipidemia Status: Acute (4) Hypothyroidism ICD Codes: E03.9 - Hypothyroidism Status: Acute (5) Generalized weakness ICD Codes: R53.1 - Weakness Status: Acute (6) History of recent fall ICD Codes: Z91.81 - History of falling Status: Acute (7) Acute on chronic renal insufficiency ICD Codes: N28.9 - Disorder of kidney and ureter, unspecified; N18.9 - Chronic kidney disease, unspecified Status: Acute (8) ETOH abuse ICD Codes: F10.10 - Alcohol abuse, uncomplicated Status: Acute (9) Elevated uric acid in blood ICD Codes: E79.0 - Hyperuricemia without signs of inflammatory arthritis and tophaceous disease Status: Acute (10) Elevated liver enzymes ICD Codes: R74.8 - Abnormal levels of other serum enzymes Status: Acute (11) Hyponatremia ICD Codes: E87.1 - Hypo-osmolality and hyponatremia Status: Acute Imaging Last Impressions Head CT 04/15/17 1116 Signed Impressions: Service Date/Time: Saturday, April 15, 2017 12:19 - CONCLUSION: No acute intracranial injury Lucas Cantrell MD Chest X-Ray 04/15/17 1116 Signed Impressions: Service Date/Time: Saturday, April 15, 2017 11:28 - CONCLUSION: No acute disease. Hayes Gross MD Thyroid Ultrasound 04/15/17 0000 Signed Impressions: Service Date/Time: Saturday, April 15, 2017 20:25 - CONCLUSION: 1. Small, heterogeneous thyroid gland. Skip Barlow MD Renal Ultrasound 04/15/17 0000 Signed Impressions: Service Date/Time: Saturday, April 15, 2017 20:01 - CONCLUSION: 1. Echogenic kidneys characteristic of medical renal disease. Atrophic right kidney similar to prior study in 2012. Nonobstructing calcifications in the upper and midpole left kidney. Skip Barlow MD Hospital Course This a 62-year-old white male with significant past medical history of hypertension, hypothyroid, hyperlipidemia, chronic kidney disease. Patient presented to the emergency room with complaint of dizziness that has been ongoing for the last month. States that approximately 4 days ago he got up very fast felt lightheaded and fell. He hit his head, he did not lose consciousness. He was able to get up and walk around without any problem. He sustained a small abrasion to the right temporal lobe. At that time he did not seek any medical assistance. Patient indicated that he continued to feel more dizzy, he was complaining of a headache. He's also felt more weak and very fatigued. Patient stated that 3 days ago he was drinking more heavily, approximately 3 Vodkas a day but had been cutting back down to 1. His last drink was 2 days ago when he had a shot of liquor. Patient stated he has not seen his primary care physician in almost a year and has not had his TSH done. Patient denied any fever, no chills, no chest pain, no shortness of breath, no diarrhea. Indicated that a few days ago he did notice some blood on the stool but this stopped, he attributed to taking Aleve which he takes maybe twice a week for headache. He does have a known history of chronic kidney disease, does not follow-up regularly with production team advisor and is managed by his primary care physician. Indicates he had forgotten that he is not supposed to be taking Aleve because of his kidney function. States that he was told his right kidney is not functioning well. Patient was evaluated in emergency room, laboratory workup was completed. Vital signs significant for mild tachycardia, blood pressure was 102/65, heart rate 97. CBC remarkable for leukopenia, WBC 3.8, hemoglobin 10.9, hematocrit 32.8. Sedimentation rate 47. BMP remarkable for hyponatremia, sodium 1:30. BUN 2061, creatinine 2.99. Uric acid 2.4. Phosphorus 1.8. AST 283, ALT 12/06/40, alkaline phosphatase 142. Ammonia negative. TSH was 26.9. Free T3 1 0.99. Troponin was negative. urinalysis was negative. Chest x-ray was negative. CT of the head did not reveal any acute findings. EKG was normal. Patient was given 1 L of IV fluids. Patient endorses that he is compliant with his Synthroid, he was last admitted here in 2011 and at that time he wasn't taking it regularly. Patient was admitted for further evaluation and treatment. (1) Dizziness (2) Hypertension (3) Hyperlipidemia (4) Hypothyroidism (5) Generalized weakness (6) History of recent fall (7) Acute on chronic renal insufficiency (8) ETOH abuse (9) Elevated uric acid in blood (10) Elevated liver enzymes (11) Hyponatremia During the course of the hospitalization, the following took place: 62-year-old white male presented to emergency room with complaint of dizziness, recent fall with right frontotemporal operation. CT of the head negative. Found with acute on chronic kidney injury and elevated TSH 26.9. Dizziness, possibly multifactorial, with acute on chronic renal injury, possibly dehydrated, TSH 26.9 -Continuous cardiac telemetry ordered put on IV fluids Continue with Synthroid, will need follow-up thyroid function in 4-6 weeks. Dose increased to 200 mcg. orthostatics every shift-negative -Held blood pressure medication Severe hypothyroid, questionable compliance Resume Synthroid, adjusted. -Thyroid ultrasound done Acute on chronic kidney injury Hypophosphatemia Hyponatremia Elevated uric acid Continue with IV fluids -Replaced phosphorus renal ultrasound-results as noted. Right kidney atrophic held Diovan -Patient was educated to avoid NSAIDs -Followed BMP daily. Alcohol abuse, indicated he has been cutting down Monitored for withdrawal Ethanol abuse counseling done started on folic acid and thiamine Elevated liver enzymes monitored LFTs Heparin for DVT prophylaxis was ordered. PT was ordered, no syncope. Patient denies any dizziness, was hydrated Renal function with slight improvement Synthroid adjusted Was instructed to have follow-up labs with primary care physician, TSH need to be checked 4-6 weeks Instructed to abstain from drinking and avoid NSAIDs Was discharged home in stable condition Pt Condition on Discharge: Stable Discharge Disposition: Discharge Home Discharge Instructions DIET: Follow Instructions for: As Tolerated, No Restrictions Activities you can perform: Weight Bearing as Malik New Medications: Levothyroxine (Synthroid) 200 Mcg Tab 200 MCG PO DAILY@06 for Thyroid, #30 TAB 1 Refill Erin Hawley May 10, 2017 18:43
== END 2017-04-17 16:06 | disposition home or self-care (01) ==
LOC: NEPC 10:53 → NEDA 13:21 → NEPFCDU 16:33
PROVIDERS: ADMIT Specialist; ATTEND Specialist
DX: I12.9 Hypertensive chronic kidney disease with stage 1 through stage 4 chronic kidney disease, or unspecified chronic kidney disease (principal); N18.9 Chronic kidney disease, unspecified; N17.9 Acute kidney failure, unspecified; E03.9 Hypothyroidism, unspecified; E78.5 Hyperlipidemia, unspecified; R53.1 Weakness; R42 Dizziness and giddiness; E87.5 Hyperkalemia; S00.81XA Abrasion of other part of head, initial encounter; R51 Headache; F10.10 Alcohol abuse, uncomplicated; E87.1 Hypo-osmolality and hyponatremia; R74.8 Abnormal levels of other serum enzymes; E83.39 Other disorders of phosphorus metabolism; H91.90 Unspecified hearing loss, unspecified ear; D63.8 Anemia in other chronic diseases classified elsewhere; Z79.899 Other long term (current) drug therapy; W18.30XA Fall on same level, unspecified, initial encounter
CPT/HCPCS: 70450; 71010; 76536; 76775; 80053; 81001; 82140; 82533; 82550; 82607; 83735; 84100; 84153; 84154; 84402; 84403; 84410; 84439; 84443; 84481; 84484; 84550; 85025; 85610; 85652; 85730; 90471; 90714; 93005; 96361; 96365; 96372; 97162; 99285; G0378; G8987; G8988; J1644; J7030